=== PATIENT | male | born 1955 | race Hispanic/Latino ===

== ENCOUNTER 2021-03-08 07:27 | Outpatient (CLI) | payer OTHER, MEDICAID ==
[2021-03-08 15:52] LABS: SARS-CoV-2 PCR by NAA Not Detected (NotDetected)
== END 2021-03-08 07:28 | disposition home or self-care (01) ==
LOC: LABBT 07:27
PROVIDERS: ATTEND Ophthalmology Retina Specialist
DX: Z01.812 Encounter for preprocedural laboratory examination (principal); H43.391 Other vitreous opacities, right eye; Z20.822 Contact with and (suspected) exposure to COVID-19
CPT/HCPCS: U0003; U0005

== ENCOUNTER 2021-03-14 06:02 | Day surgery (SDC) | payer MEDICARE, MEDICAID ==
[2021-03-13 13:09] VITALS: BMI 25.0
[2021-03-14] MEDS ORDERED: Cyclopentolate 1% Opth Drop 2 ML BOT ONE (06:15)
[2021-03-14] MEDS ORDERED: Phenylephrine 2.5% Ophth Soln 5 ML BOT ONE (06:16)
[2021-03-14] MEDS ORDERED: EPINEPHrine 0.3 MG in Ophthalmic Irrigation Solution 500 ML IRR SCH (06:30)
[2021-03-14] MEDS ORDERED: Fentanyl 100 MCG/2 ML VIAL ONE (06:33)
[2021-03-14] MEDS ORDERED: Midazolam HCl 2 mg/2 ml Vial ONE (06:33)
[2021-03-14] MEDS ORDERED: PROPOFOL 20 ML ONE (06:33)
[2021-03-14] MEDS ORDERED: Triamcinolone 40 MG/ML VIAL ONE (07:09)
[2021-03-14] MEDS ORDERED: Lidocaine 1% PF 5 ML VIAL ONE ×2 (07:09)
[2021-03-14] MEDS ORDERED: Lidocaine 4% PF 5 ML AMP ONE (07:09)
[2021-03-14] MEDS ORDERED: Bupivacaine PF 0.75% SDV 10 ML ONE (07:09)
[2021-03-14] MEDS ORDERED: Maxitrol 0.1% Opth Oint 3.5 GM TUBE ONE (07:09)
[2021-03-14] MEDS ORDERED: CEFAZOLIN 1 GM VIAL ONE (07:09)
== END 2021-03-14 08:32 | disposition home or self-care (01) ==
LOC: SDC 06:02
PROVIDERS: ATTEND Ophthalmology Retina Specialist
PROC: 08T43ZZ Resection of Right Vitreous, Percutaneous Approach (ICD-10-PCS; principal; 2021-03-14)
DX: H43.391 Other vitreous opacities, right eye (principal); Z79.84 Long term (current) use of oral hypoglycemic drugs; Z79.899 Other long term (current) drug therapy
CPT/HCPCS: J0171; J0690; J2250; J2704; J3010; J3301; J3490

== ENCOUNTER 2021-05-11 07:47 | Outpatient (CLI) | payer MEDICARE, MEDICAID ==
[2021-05-11 17:22] LABS: SARS-CoV-2 PCR by NAA Not Detected (NotDetected)
== END 2021-05-11 07:48 | disposition home or self-care (01) ==
LOC: LABBT 07:47
PROVIDERS: ATTEND Ophthalmology Retina Specialist
DX: Z01.812 Encounter for preprocedural laboratory examination (principal); H43.391 Other vitreous opacities, right eye; H43.392 Other vitreous opacities, left eye; Z20.822 Contact with and (suspected) exposure to COVID-19
CPT/HCPCS: U0003; U0005

== ENCOUNTER 2024-08-26 15:46 | Inpatient (IN) | payer MEDICARE, OTHER ==
[2024-08-26 18:32] LABS: #Basophils Less than 0.03 10x3/uL (0.0-0.2); #Eosinophils Less than 0.03 10x3/uL (0.0-0.7); %Lymphocytes 11.8 % (21.0-51.0); %Monocytes 4.1 % (0.0-10.0); %Neutrophils 83.7 % (42.0-75.0); Hematocrit 30.2 % (42.0-52.0); Hemoglobin 10.3 g/dL (14.0-18.0); Mean Corpuscular HGB CONC 34.1 g/dL (32.0-36.0); Mean Corpuscular Hemoglobin 25.3 pg (27.0-31.0); Mean Corpuscular Volume 74.2 fL (78.0-98.0); Mean Platelet Volume 9.8 fL (7.4-10.4); Platelet Count 99 10x3/uL (130-400); RBC Distribution Width 21.2 % (11.5-14.5); Red Blood Cell (RBC) Count 4.07 mill/uL (4.70-6.10)
[2024-08-26 18:54] LABS: Troponin I 0.035 ng/mL (< 0.028)
[2024-08-26 18:56] LABS: Bacteria/HPF None Seen HPF (None Seen); Bilirubin Negative (Negative); Blood, Urine Negative (Negative); CAUTI Indications for Culture Alt mental st,lethar; Clarity Clear (Clear); Glucose, Urine (Dipstick) Normal (Negative); Ketone, Urine Negative (Negative); Leukocyte Negative Leu/uL (Negative); Nitrite Negative (Negative); Protein, Urine (Dipstick) Negative (Neg-Trace); RBC/HPF 0-3 HPF (0-3); Specific Gravity, Urine 1.014 (1.002-1.036); Squamous Epithelial 0-3 HPF (0-3); Urobilinogen Normal mg/dL (Less than 2); WBC/HPF None Seen HPF (0-3)
[2024-08-26 19:05] LABS: Urine Culture Reflex No No
[2024-08-26 19:09] LABS: INR-International Normal Ratio 1.2; Prothrombin Time 14.8 sec (12.0-14.7)
[2024-08-26 19:09] LABS: ALT (SGPT) 115 U/L (8-55); AST (SGOT) 150 U/L (5-34); Albumin 2.2 g/dL (3.4-4.8); Alkaline Phosphatase 532 U/L (40-110); Anion Gap 17 mmol/L (10-20); BUN (Urea Nitrogen) 33 mg/dL (8.4-25.7); Bilirubin, Total 0.6 mg/dL (0.2-1.2); Calc. Creatinine Clearance 0 mL/min (70-130); Calcium 7.7 mg/dL (7.8-10.44); Carbon Dioxide 22 mmol/L (23-31); Chloride 102 mmol/L (98-107); Estimated GFR 54; Globulin 2.6 g/dL (2.4-3.5); Glucose 111 mg/dL (83-110); Potassium 2.6 mmol/L (3.5-5.1); Protein, Total 4.8 g/dL (5.8-8.1); Sodium 138 mmol/L (136-145)
[2024-08-26 19:11] LABS: Anisocytosis SLIGHT = 6-15 cells HPF (0-5); Burr Cells SLIGHT = 2-5 cells HPF (0-1); Microcytosis SLIGHT = 6-15 cells HPF (0-5); Platelet Adequacy Comment Platelets Decreased; Polychromasia MODERATE = 3-4 cells HPF (0-2)
[2024-08-26] MEDS ORDERED: NS 0.9% w/ 20 MEQ KCL 1,000 ML ONE (20:16)
[2024-08-26] MEDS ORDERED: Potassium Bicarbonate/Cit Ac 20 MEQ TAB ONE (20:16)
[2024-08-26 21:30] LABS: Lactic Acid 2.16 mmol/L (0.5-2.2)
[2024-08-27] MEDS: traMADol HCl 50 MG TAB PO PRN (00:23)
[2024-08-27 01:04] LABS: Troponin I 0.021 ng/mL (< 0.028)
[2024-08-27 01:27] VITALS: BMI 23.3
[2024-08-27] MEDS: Albumin 25% 25 GM (100 mL) BOT IVPB SCH ×2 (01:56→20:04)
[2024-08-27] MEDS ORDERED: Electrolyte Replacement Protocol 1 EACH FS SCH (03:15)
[2024-08-27] MEDS: Lidocaine 2% Viscous Solution 10 ML, Aluminum & Magnesium Hydroxide 30 ML SSW SCH (04:00)
[2024-08-27 04:45] LABS: #Basophils Less than 0.03 10x3/uL (0.0-0.2); #Eosinophils Less than 0.03 10x3/uL (0.0-0.7); %Lymphocytes 11.1 % (21.0-51.0); %Monocytes 4.5 % (0.0-10.0); %Neutrophils 83.9 % (42.0-75.0); Hematocrit 26.2 % (42.0-52.0); Hemoglobin 8.7 g/dL (14.0-18.0); Mean Corpuscular HGB CONC 33.2 g/dL (32.0-36.0); Mean Corpuscular Hemoglobin 24.9 pg (27.0-31.0); Mean Corpuscular Volume 74.9 fL (78.0-98.0); Mean Platelet Volume 9.9 fL (7.4-10.4); Platelet Count 72 10x3/uL (130-400); RBC Distribution Width 21.4 % (11.5-14.5)
[2024-08-27 05:17] LABS: Anisocytosis SLIGHT = 6-15 cells HPF (0-5); Hypochromia SLIGHT = 6-15 cells HPF (0-5); Microcytosis SLIGHT = 6-15 cells HPF (0-5); Platelet Adequacy Comment Platelets Decreased; Polychromasia SLIGHT = 2-3 cells HPF (0-2)
[2024-08-27 05:33] LABS: Anion Gap 15 mmol/L (10-20); BUN (Urea Nitrogen) 31 mg/dL (8.4-25.7); Calc. Creatinine Clearance 39 mL/min (70-130); Calcium 7.7 mg/dL (7.8-10.44); Carbon Dioxide 24 mmol/L (23-31); Chloride 103 mmol/L (98-107); Estimated GFR 52; Glucose 68 mg/dL (83-110); Magnesium 1.9 mg/dL (1.6-2.6); Potassium 3.1 mmol/L (3.5-5.1); Sodium 139 mmol/L (136-145)
[2024-08-27] MEDS: Potassium Chloride 20 MEQ TAB PO SCH (09:40)
[2024-08-27] MEDS: Spironolactone 100 MG TAB PO SCH (09:40)
[2024-08-27] MEDS: Magnesium 2 GM/50 ML(in water) 2 GM in Premix 1 BAG IVPB SCH (09:41)
[2024-08-27 13:46] LABS: Potassium 3.6 mmol/L (3.5-5.1)
[2024-08-27] MEDS ORDERED: Lidocaine 1% PF 5 ML VIAL ONE (14:21)
[2024-08-27] MEDS: Enoxaparin 30 MG (0.3 mL) SYRINGE SC SCH (16:27)
[2024-08-27 17:01] LABS: WBC/Nucleated-Auto (BF) 11 /cu.mm
[2024-08-27 18:03] LABS: Body Fluid Source Ascites Body Fluid
[2024-08-27 18:04] LABS: Clarity Clear (Clear); RBC Count-Automated (BF) 2 /cu.mm; Tube # EDTA
[2024-08-27 18:05] LABS: BF Color Yellow
[2024-08-27 18:10] LABS: BF Segmented Neutrophils 10 %; Cell Count Non Hematic 57 %; Lymphocytes 33 %
[2024-08-27] MEDS: Midodrine HCl 5 MG TAB PO SCH (20:03)
[2024-08-28] MEDS: Midodrine HCl 5 MG TAB PO SCH (00:26)
[2024-08-28] MEDS: Sodium Chloride 0.9% 250 ML IV SCH ×2 (02:09→03:58)
[2024-08-28 05:11] LABS: Magnesium 2.1 mg/dL (1.6-2.6)
[2024-08-28] MEDS: Enoxaparin 40 MG (0.4 mL) SYRINGE SC SCH (09:59)
[2024-08-29 10:21] LABS: #Basophils Less than 0.03 10x3/uL (0.0-0.2); #Eosinophils Less than 0.03 10x3/uL (0.0-0.7); %Basophils 0.2 % (0.0-1.0); %Lymphocytes 17.8 % (21.0-51.0); %Neutrophils 74.8 % (42.0-75.0); Hematocrit 28.5 % (42.0-52.0); Hemoglobin 9.4 g/dL (14.0-18.0); Mean Corpuscular Hemoglobin 25.4 pg (27.0-31.0); Mean Platelet Volume 9.1 fL (7.4-10.4); Platelet Count 72 10x3/uL (130-400); RBC Distribution Width 21.3 % (11.5-14.5)
[2024-08-29 11:49] LABS: ALT (SGPT) 58 U/L (8-55); AST (SGOT) 77 U/L (5-34); Albumin 2.5 g/dL (3.4-4.8); Alkaline Phosphatase 317 U/L (40-110); Anion Gap 9 mmol/L (10-20); BUN (Urea Nitrogen) 22 mg/dL (8.4-25.7); Bilirubin, Total 0.5 mg/dL (0.2-1.2); Calc. Creatinine Clearance 55 mL/min (70-130); Calcium 7.6 mg/dL (7.8-10.44); Carbon Dioxide 24 mmol/L (23-31); Chloride 103 mmol/L (98-107); Estimated GFR 79; Globulin 1.5 g/dL (2.4-3.5); Glucose 113 mg/dL (83-110); Potassium 3.7 mmol/L (3.5-5.1); Sodium 132 mmol/L (136-145)
[2024-08-29] MEDS ORDERED: Midodrine HCl 5 MG TAB PO SCH ×2 (17:00→21:00)
[2024-08-30 04:21] LABS: #Basophils Less than 0.03 10x3/uL (0.0-0.2); #Eosinophils Less than 0.03 10x3/uL (0.0-0.7); %Basophils 0.2 % (0.0-1.0); %Monocytes 6.9 % (0.0-10.0); %Neutrophils 69.5 % (42.0-75.0); Hematocrit 29.8 % (42.0-52.0); Hemoglobin 9.8 g/dL (14.0-18.0); Mean Corpuscular HGB CONC 32.9 g/dL (32.0-36.0); Mean Corpuscular Hemoglobin 25.4 pg (27.0-31.0); Mean Corpuscular Volume 77.2 fL (78.0-98.0); Mean Platelet Volume 9.9 fL (7.4-10.4); Platelet Count 83 10x3/uL (130-400); RBC Distribution Width 21.9 % (11.5-14.5); Red Blood Cell (RBC) Count 3.86 mill/uL (4.70-6.10)
[2024-08-30 04:35] LABS: ALT (SGPT) 67 U/L (8-55); AST (SGOT) 79 U/L (5-34); Albumin 2.6 g/dL (3.4-4.8); Alkaline Phosphatase 389 U/L (40-110); Anion Gap 11 mmol/L (10-20); BUN (Urea Nitrogen) 23 mg/dL (8.4-25.7); Bilirubin, Total 0.6 mg/dL (0.2-1.2); Calc. Creatinine Clearance 56 mL/min (70-130); Calcium 7.6 mg/dL (7.8-10.44); Carbon Dioxide 23 mmol/L (23-31); Chloride 104 mmol/L (98-107); Estimated GFR 80; Globulin 1.7 g/dL (2.4-3.5); Glucose 99 mg/dL (83-110); Potassium 3.5 mmol/L (3.5-5.1); Protein, Total 4.3 g/dL (5.8-8.1); Sodium 134 mmol/L (136-145)
[2024-08-30] MEDS: Potassium Chloride 20 MEQ TAB PO SCH (10:17)
[2024-08-30] MEDS: FLU (Fluad Triv) TS24-25 (65UP)/MF59C/PF 45 MCG/0.5 ML Syringe IM ONE (10:17)
[2024-08-30] MEDS: Midodrine HCl 5 MG TAB PO SCH ×2 (10:18→14:19)
[2024-08-30 14:18] LABS: Potassium 3.6 mmol/L (3.5-5.1)
[2024-08-30] MEDS: Melatonin 3 MG TAB PO SCH (20:43)
[2024-08-31 04:38] LABS: #Basophils Less than 0.03 10x3/uL (0.0-0.2); #Eosinophils Less than 0.03 10x3/uL (0.0-0.7); %Basophils 0.2 % (0.0-1.0); %Lymphocytes 20.8 % (21.0-51.0); %Monocytes 6.8 % (0.0-10.0); Hematocrit 27.1 % (42.0-52.0); Hemoglobin 9.1 g/dL (14.0-18.0); Mean Corpuscular HGB CONC 33.6 g/dL (32.0-36.0); Mean Corpuscular Hemoglobin 25.3 pg (27.0-31.0); Mean Corpuscular Volume 75.3 fL (78.0-98.0); Mean Platelet Volume 9.6 fL (7.4-10.4); Platelet Count 83 10x3/uL (130-400); RBC Distribution Width 21.6 % (11.5-14.5)
[2024-08-31 04:54] LABS: ALT (SGPT) 56 U/L (8-55); AST (SGOT) 55 U/L (5-34); Albumin 2.3 g/dL (3.4-4.8); Alkaline Phosphatase 323 U/L (40-110); Anion Gap 10 mmol/L (10-20); BUN (Urea Nitrogen) 26 mg/dL (8.4-25.7); Bilirubin, Total 0.5 mg/dL (0.2-1.2); Calc. Creatinine Clearance 62 mL/min (70-130); Calcium 7.4 mg/dL (7.8-10.44); Carbon Dioxide 21 mmol/L (23-31); Chloride 106 mmol/L (98-107); Estimated GFR 91; Globulin 1.7 g/dL (2.4-3.5); Glucose 60 mg/dL (83-110); Potassium 3.5 mmol/L (3.5-5.1); Sodium 133 mmol/L (136-145)
[2024-08-31] MEDS: Potassium Chloride 20 MEQ TAB PO SCH (11:57)
[2024-08-31] MEDS: Midodrine HCl 5 MG TAB PO SCH (20:48)
[2024-09-01 04:56] LABS: #Basophils Less than 0.03 10x3/uL (0.0-0.2); #Eosinophils Less than 0.03 10x3/uL (0.0-0.7); %Basophils 0.2 % (0.0-1.0); %Lymphocytes 17.4 % (21.0-51.0); %Monocytes 5.8 % (0.0-10.0); %Neutrophils 76.4 % (42.0-75.0); Hematocrit 27.6 % (42.0-52.0); Hemoglobin 9.2 g/dL (14.0-18.0); Mean Corpuscular HGB CONC 33.3 g/dL (32.0-36.0); Mean Corpuscular Hemoglobin 25.5 pg (27.0-31.0); Mean Corpuscular Volume 76.5 fL (78.0-98.0); Mean Platelet Volume 10.1 fL (7.4-10.4); Platelet Count 82 10x3/uL (130-400); RBC Distribution Width 21.9 % (11.5-14.5); Red Blood Cell (RBC) Count 3.61 mill/uL (4.70-6.10)
[2024-09-01 05:05] LABS: ALT (SGPT) 66 U/L (8-55); AST (SGOT) 98 U/L (5-34); Albumin 2.3 g/dL (3.4-4.8); Alkaline Phosphatase 359 U/L (40-110); Anion Gap 10 mmol/L (10-20); BUN (Urea Nitrogen) 26 mg/dL (8.4-25.7); Bilirubin, Total 0.7 mg/dL (0.2-1.2); Calc. Creatinine Clearance 65 mL/min (70-130); Calcium 7.5 mg/dL (7.8-10.44); Carbon Dioxide 20 mmol/L (23-31); Chloride 107 mmol/L (98-107); Estimated GFR 93; Glucose 77 mg/dL (83-110); Potassium 4.7 mmol/L (3.5-5.1); Protein, Total 4.3 g/dL (5.8-8.1); Sodium 132 mmol/L (136-145)
[2024-09-02 04:39] LABS: ALT (SGPT) 72 U/L (8-55); AST (SGOT) 111 U/L (5-34); Albumin 2.2 g/dL (3.4-4.8); Alkaline Phosphatase 399 U/L (40-110); Anion Gap 11 mmol/L (10-20); BUN (Urea Nitrogen) 31 mg/dL (8.4-25.7); Bilirubin, Total 0.6 mg/dL (0.2-1.2); Calc. Creatinine Clearance 55 mL/min (70-130); Calcium 7.4 mg/dL (7.8-10.44); Carbon Dioxide 23 mmol/L (23-31); Chloride 104 mmol/L (98-107); Estimated GFR 80; Globulin 1.9 g/dL (2.4-3.5); Glucose 67 mg/dL (83-110); Potassium 4.7 mmol/L (3.5-5.1); Protein, Total 4.1 g/dL (5.8-8.1); Sodium 133 mmol/L (136-145)
[2024-09-02 04:53] LABS: #Basophils Less than 0.03 10x3/uL (0.0-0.2); #Eosinophils Less than 0.03 10x3/uL (0.0-0.7); %Basophils 0.2 % (0.0-1.0); %Lymphocytes 18.2 % (21.0-51.0); %Monocytes 6.2 % (0.0-10.0); %Neutrophils 75.2 % (42.0-75.0); Hematocrit 28.3 % (42.0-52.0); Hemoglobin 9.3 g/dL (14.0-18.0); Mean Corpuscular HGB CONC 32.9 g/dL (32.0-36.0); Mean Corpuscular Hemoglobin 25.3 pg (27.0-31.0); Mean Corpuscular Volume 76.9 fL (78.0-98.0); Platelet Count 84 10x3/uL (130-400); RBC Distribution Width 22.3 % (11.5-14.5); Red Blood Cell (RBC) Count 3.68 mill/uL (4.70-6.10)
[2024-09-03 15:33] VITALS: BMI 23.3
[2024-09-04] MEDS: Pantoprazole DR 40 MG TAB PO SCH (08:58)
[2024-09-04] MEDS ORDERED: Sodium Bicarbonate 2.5 MEQ/5 ML SDV ONE (14:57)
[2024-09-04] MEDS ORDERED: Lidocaine 1% PF 5 ML VIAL ONE (14:57)
[2024-09-04] MEDS ORDERED: Albumin 25% 100 ML ONE (15:31)
[2024-09-05] MEDS: Ondansetron PF 4 MG/2 ML Vial IVP PRN (04:11)
[2024-09-05] MEDS: Albumin 25% 25 GM (100 mL) BOT IVPB SCH (11:31)
[2024-09-06] MEDS ORDERED: traMADol HCl 50 MG TAB PO PRN (10:36)
[2024-09-06] MEDS: Melatonin 3 MG TAB PO PRN (21:24)
[2024-09-07 05:30] LABS: #Basophils Less than 0.03 10x3/uL (0.0-0.2); #Eosinophils Less than 0.03 10x3/uL (0.0-0.7); %Basophils 0.1 % (0.0-1.0); %Lymphocytes 10.4 % (21.0-51.0); %Monocytes 4.8 % (0.0-10.0); %Neutrophils 84.4 % (42.0-75.0); Hemoglobin 10.5 g/dL (14.0-18.0); Mean Corpuscular HGB CONC 33.9 g/dL (32.0-36.0); Mean Corpuscular Hemoglobin 26.1 pg (27.0-31.0); Mean Corpuscular Volume 77.1 fL (78.0-98.0); Mean Platelet Volume 9.5 fL (7.4-10.4); Platelet Count 103 10x3/uL (130-400); RBC Distribution Width 22.6 % (11.5-14.5); Red Blood Cell (RBC) Count 4.02 mill/uL (4.70-6.10)
[2024-09-07 05:51] LABS: Anion Gap 14 mmol/L (10-20); BUN (Urea Nitrogen) 36 mg/dL (8.4-25.7); Calc. Creatinine Clearance 40 mL/min (70-130); Carbon Dioxide 17 mmol/L (23-31); Chloride 108 mmol/L (98-107); Estimated GFR 54; Glucose 105 mg/dL (83-110); Potassium 4.1 mmol/L (3.5-5.1); Sodium 135 mmol/L (136-145)
[2024-09-08 06:21] LABS: Anion Gap 10 mmol/L (10-20); BUN (Urea Nitrogen) 35 mg/dL (8.4-25.7); Calc. Creatinine Clearance 53 mL/min (70-130); Calcium 7.5 mg/dL (7.8-10.44); Carbon Dioxide 18 mmol/L (23-31); Chloride 109 mmol/L (98-107); Estimated GFR 77; Glucose 60 mg/dL (83-110); Potassium 4.3 mmol/L (3.5-5.1); Sodium 133 mmol/L (136-145)
[2024-09-08 06:24] LABS: #Basophils Less than 0.03 10x3/uL (0.0-0.2); #Eosinophils Less than 0.03 10x3/uL (0.0-0.7); %Basophils 0.2 % (0.0-1.0); %Lymphocytes 23.5 % (21.0-51.0); %Monocytes 5.1 % (0.0-10.0); Hematocrit 33.2 % (42.0-52.0); Hemoglobin 10.9 g/dL (14.0-18.0); Mean Corpuscular HGB CONC 32.8 g/dL (32.0-36.0); Mean Corpuscular Hemoglobin 25.8 pg (27.0-31.0); Mean Corpuscular Volume 78.5 fL (78.0-98.0); Mean Platelet Volume 9.9 fL (7.4-10.4); Platelet Count 50 10x3/uL (130-400); RBC Distribution Width 23.1 % (11.5-14.5); Red Blood Cell (RBC) Count 4.23 mill/uL (4.70-6.10)
[2024-09-09 06:08] LABS: #Basophils Less than 0.03 10x3/uL (0.0-0.2); #Eosinophils Less than 0.03 10x3/uL (0.0-0.7); %Basophils 0.2 % (0.0-1.0); %Lymphocytes 17.9 % (21.0-51.0); %Monocytes 6.1 % (0.0-10.0); %Neutrophils 75.3 % (42.0-75.0); Hematocrit 31.9 % (42.0-52.0); Hemoglobin 10.7 g/dL (14.0-18.0); Mean Corpuscular HGB CONC 33.5 g/dL (32.0-36.0); Mean Corpuscular Hemoglobin 26.6 pg (27.0-31.0); Mean Corpuscular Volume 79.2 fL (78.0-98.0); Mean Platelet Volume 9.5 fL (7.4-10.4); Platelet Count 83 10x3/uL (130-400); RBC Distribution Width 22.9 % (11.5-14.5); Red Blood Cell (RBC) Count 4.03 mill/uL (4.70-6.10)
[2024-09-09 07:04] LABS: Anion Gap 12 mmol/L (10-20); BUN (Urea Nitrogen) 44 mg/dL (8.4-25.7); Calc. Creatinine Clearance 48 mL/min (70-130); Calcium 7.6 mg/dL (7.8-10.44); Carbon Dioxide 17 mmol/L (23-31); Chloride 112 mmol/L (98-107); Estimated GFR 67; Glucose 73 mg/dL (83-110); Potassium 4.7 mmol/L (3.5-5.1); Sodium 136 mmol/L (136-145)
[2024-09-10 06:40] LABS: Anion Gap 14 mmol/L (10-20); BUN (Urea Nitrogen) 52 mg/dL (8.4-25.7); Calc. Creatinine Clearance 48 mL/min (70-130); Calcium 7.8 mg/dL (7.8-10.44); Carbon Dioxide 17 mmol/L (23-31); Chloride 111 mmol/L (98-107); Estimated GFR 67; Glucose 60 mg/dL (83-110); Potassium 4.9 mmol/L (3.5-5.1); Sodium 137 mmol/L (136-145)
[2024-09-10 06:45] LABS: #Basophils Less than 0.03 10x3/uL (0.0-0.2); #Eosinophils Less than 0.03 10x3/uL (0.0-0.7); %Basophils 0.2 % (0.0-1.0); %Lymphocytes 22.6 % (21.0-51.0); %Monocytes 5.1 % (0.0-10.0); %Neutrophils 71.8 % (42.0-75.0); Hematocrit 37.1 % (42.0-52.0); Hemoglobin 11.7 g/dL (14.0-18.0); Mean Corpuscular HGB CONC 31.5 g/dL (32.0-36.0); Mean Corpuscular Hemoglobin 25.9 pg (27.0-31.0); Mean Corpuscular Volume 82.1 fL (78.0-98.0); Mean Platelet Volume 9.4 fL (7.4-10.4); Platelet Count 91 10x3/uL (130-400); RBC Distribution Width 23.4 % (11.5-14.5); Red Blood Cell (RBC) Count 4.52 mill/uL (4.70-6.10)
[2024-09-11 09:21] VITALS: BP 123/79; TEMP 98.5
== END 2024-09-11 17:50 | DRG 432 ==
LOC: ERS 15:46 → ERHOLD 20:33 → 2NO 21:11 → OBSVTOIN 08-27 16:47 → T4-B 09-05 23:26
PROVIDERS: ADMIT Internal Medicine; ATTEND Internal Medicine
PROC: 0W9G3ZZ Drainage of Peritoneal Cavity, Percutaneous Approach (ICD-10-PCS; principal; 2024-08-27)
PROC: 0W9G3ZZ Drainage of Peritoneal Cavity, Percutaneous Approach (ICD-10-PCS; 2024-09-04)
DX: K70.31 Alcoholic cirrhosis of liver with ascites (principal); K76.7 Hepatorenal syndrome; D61.818 Other pancytopenia; E87.1 Hypo-osmolality and hyponatremia; N17.9 Acute kidney failure, unspecified; R45.851 Suicidal ideations; I24.89 Other forms of acute ischemic heart disease; N18.9 Chronic kidney disease, unspecified; I95.9 Hypotension, unspecified; Z51.5 Encounter for palliative care; E87.6 Hypokalemia; E88.09 Other disorders of plasma-protein metabolism, not elsewhere classified; K21.9 Gastro-esophageal reflux disease without esophagitis; N40.0 Benign prostatic hyperplasia without lower urinary tract symptoms; D69.6 Thrombocytopenia, unspecified
CPT/HCPCS: 36415; 49083; 80048; 80053; 81001; 82042; 83605; 83735; 84157; 84484; 85025; 85060; 85610; 85730; 87040; 87070; 87205; 88112; 88305; 89051; 93005; 96374; 96375; 96376; 97139; G0378; J1650; J2405; J3475; J3480; J7030; P9047